=== PATIENT | female | born 1940 | race Caucasian/White ===

== ENCOUNTER 2023-12-22 14:05 | Emergency (ER) | payer MEDICARE, OTHER ==
[~2023-12-22] VITALS: Ht 160 cm; Wt 45.5 kg
[2023-12-22 14:18] VITALS: TEMP 98.1
[2023-12-22] MEDS: TraMADol HCL 50 MG TABLET PO ONE (16:56)
[2023-12-22 19:55] VITALS: BP 136/71; PULSE 84; RESP 16
[2023-12-22] MEDS ORDERED: TRAM50TA5 PO (20:35)
== END 2023-12-22 20:55 | disposition home or self-care (01) ==
LOC: EMS 14:05
DX: S72.001A Fracture of unspecified part of neck of right femur, initial encounter for closed fracture (principal); Z98.890 Other specified postprocedural states; Z88.8 Allergy status to other drugs, medicaments and biological substances; X58.XXXA Exposure to other specified factors, initial encounter; Y93.89 Activity, other specified; Y92.89 Other specified places as the place of occurrence of the external cause; Y99.8 Other external cause status
CPT/HCPCS: 73502; 99284

== ENCOUNTER 2024-04-12 17:15 | Emergency (ER) | payer MEDICARE, OTHER ==
[~2024-04-12] VITALS: Ht 157.5 cm; Wt 52.3 kg
[~2024-04-12 17:15] MED LIST: TRAM50TA5 PO
[2024-04-12 17:23] VITALS: BP 145/72; PULSE 92; RESP 18; TEMP 98; O2SAT 99
== END 2024-04-12 19:05 | disposition left against medical advice (07) ==
LOC: EMS 17:15
DX: M79.662 Pain in left lower leg (principal); M79.661 Pain in right lower leg; Z53.21 Procedure and treatment not carried out due to patient leaving prior to being seen by health care provider